=== PATIENT | male | born 1980 | race Caucasian/White ===

== ENCOUNTER → 2018-05-29 | Outpatient (CLI) | payer BC ==
[~2018-05-29] MED LIST: IOHEXOL 350 MG/ML 100 ML (OMNIPAQUE 350) VIAL IV ONE; NS 250 ML (IVPB) BAG IV ONE
--- NOTE | 2018-05-29 09:28 | Diagnostic Imaging Report ---
PROCEDURE: CT abdomen and pelvis with contrast. TECHNIQUE: Multiple contiguous axial images were obtained through the abdomen and pelvis after administration of intravenous contrast. INDICATION: Left lower abdominal pain. COMPARISON: No prior studies are available for comparison. FINDINGS: The lung bases are clear. No discrete liver mass is identified. The gallbladder is unremarkable. The pancreas and spleen are unremarkable. No adrenal mass is detected. The kidneys are unremarkable. The aorta is non-aneurysmal. The small and large bowel loops are of normal caliber. No obstruction is seen. There is no free fluid or fluid collection. No free air is identified. The bladder and prostate are unremarkable. IMPRESSION: Unremarkable CT of the abdomen and pelvis with contrast. No acute feature is identified. Dictated by: Dictated on workstation # [id number]
== END ==
LOC: RAD 08:43
PROVIDERS: ATTEND Internal Medicine
DX: R10.32 Left lower quadrant pain (principal)
CPT/HCPCS: 74177

== ENCOUNTER → 2023-08-31 | Outpatient (CLI) | payer BC ==
--- NOTE | 2023-08-31 17:44 | Diagnostic Imaging Report ---
HISTORY: Back pain. TECHNIQUE: Three views of the thoracic spine. COMPARISON: None. FINDINGS: The upper thoracic spine is obscured by overlapping structures. Alignment appears normal, and no spondylolisthesis is seen. Vertebral body heights are preserved. Disc heights generally appear preserved as well. No acute fracture is seen. IMPRESSION: 1. No acute osseous abnormality is seen in the thoracic spine. Dictated by: Dictated on workstation # [id number]
== END ==
LOC: RAD 15:13
PROVIDERS: ATTEND Internal Medicine
DX: M54.6 Pain in thoracic spine (principal)
CPT/HCPCS: 72072